=== PATIENT | female | born 1955 | race Caucasian/White ===

== ENCOUNTER 2018-07-06 12:54 | Emergency (ER) | payer OTHER ==
[~2018-07-06] VITALS: Ht 157.5 cm; Wt 74.4 kg
[2018-07-06 13:04] VITALS: BP 127/74; Ht 157.5 cm; Wt 74.4 kg
== END 2018-07-06 13:39 | disposition home or self-care (01) ==
LOC: ED 12:54
DX: R20.2 Paresthesia of skin (principal); R25.2 Cramp and spasm; I10 Essential (primary) hypertension; E11.9 Type 2 diabetes mellitus without complications
CPT/HCPCS: J2001